=== PATIENT | male | born 1950 | race Caucasian/White ===

== ENCOUNTER 2019-08-08 08:18 | Emergency (ER) | payer BC, MEDICARE ==
--- OUTSIDE RECORDS SUMMARY | 2019-08-08 08:58 | XMS REPORT | Continuity of Care Document ---
:1950 External Reference #:[id number] Author Name Cory Byrd M.D., [facility] Address [address] [place] [address] Care Team Providers Name Role Phone Jose Manuel Huang MD - Otolaryngology Care Team Information Supervisor Waterworks Maria Luz Lewis MD - Internal Medicine Care Team Information Supervisor Waterworks Brannon Vallecillo MD Care Team Information Supervisor Waterworks [phone] Davide Stuart MD - Family Medicine Care Team Information Supervisor Waterworks [phone] Problems Active Problems Provider Date Benign essential hypertension Maria Luz Lewis MD Onset: 01/26/2018 Hypothyroidism Maria Luz Lewis MD Onset: 02/03/2018 Disorder of adrenal gland Maria Luz Lewis MD Onset: 02/03/2018 Immunization Maria Luz Lewis MD Onset: 02/03/2018 Pain in limb Maria Luz Lewis MD Onset: 02/03/2018 Abnormal glucose level Maria Luz Lewis MD Onset: 03/17/2018 Adult health examination Maria Luz Lewis MD Onset: 04/20/2018 Allergic rhinitis Maria Luz Lewis MD Onset: 04/20/2018 Cramp and spasm Maria Luz Lewis MD Onset: 04/20/2018 Screening for malignant neoplasm of Maria Luz Lewis MD Onset: 04/20/2018 prostate Benign prostatic hyperplasia Aurea Gomez M.D. Onset: 01/17/2019 Chest pain Cory Byrd M.D., Onset: 08/04/2019 [facility] Social History Type Date Description Comments Sex Unknown Tobacco Use Start: Unknown End: Quit Unknown Smoking Status Reviewed: 08/04/19 Quit ETOH Use Currently consumes alcohol socially Recreational Drug Use Never Used Drugs Tobacco Use Start: Unknown End: Patient is a former Quit 2005, cigars Unknown smoker Allergies, Adverse Reactions, Alerts Active Allergies Reaction Severity Comments Date Sulfa Drugs as a child 02/03/2018 Penicillin as a child 02/03/2018 Medications Active Medications SIG Qnty Indications Ordering Provider Date Ferrous Sulfate 1 by mouth every 90tabs Maria Luz Lewis MD 04/06/2019 325(65Fe) day OTC mg Tablets Levothyroxine Sodium take 1 tablet by 90tabs Maria Luz Lewis MD 10/07/2018 mouth every 150mcg Tablets morning On An Empty Stomach Losartan Potassium take 1 tablet by 90tabs Maria Luz Lewis MD 07/13/2018 50mg mouth once daily Tablets Amlodipine Besylate 1 by mouth every 90tabs Maria Luz Lewis MD 02/03/2018 5mg day Tablets Multivitamin Adults 1 by mouth every 90tabs Maria Luz Lewis MD 02/03/2018 50+ day Adlt 50+ Tablets Omeprazole 1 by mouth every Unknown 20mg Capsules day DR Vitamin D 1 by mouth every Unknown 1000Unit day Tablets History Medications Mucinex DM 1-2 tabs by mouth 60tabs R0Davide Yi, 07/19/2019 - 30-600mg twice a day as Unknown Tablets ER 12HR needed Chloraseptic Total 1 lozenge by mouth 45units R0Davide Yi, 07/19/2019 - Sore Throat + Cough every 2 hours as Unknown needed Lozenges Omeprazole take 1 capsules by 90caps Maria Luz Lewis, 05/23/2019 - 10mg Capsules mouth every day 30 MD 07/19/2019 minutes before a meal. Ciprofloxacin HCL 1 by mouth once 20tabs Jason, 04/19/2019 - 500mg given in office Madhu Villar 04/20/2019 Tablets before procedures Medications Administered in Office Medication SIG Qnty Indications Ordering Provider Date Vitamin B12 Injection 1000 Amanda Crowley MS, 05/23/2019 mcg/Ml LYE PEEL OPERATOR-C, CNM Injection Vitamin B12 Injection 1000 Nurse Internal Med 04/15/2019 mcg/Ml Injection Vitamin B12 Injection 1000 Nurse Internal Med 03/14/2019 mcg/Ml Injection Vitamin B12 Injection 1000 Nurse Internal Med 02/10/2019 mcg/Ml Injection Vitamin B12 Injection 1000 Maria Luz Lewis MD 01/05/2019 mcg/Ml Injection Immunizations CPT Code Status Date Vaccine Reaction Lot # [id number] Given 08/20/2018 Pneumovax Injection [id number] Given 08/20/2018 Influenza Virus Vaccine, Quadrivalent, 36 Mos+, .5ML [id number] Given 04/20/2018 Pneumovax Injection [id number] Given 02/03/2018 Tdap injection none [id number] Vital Signs Date Vital Result Comment 08/04/2019 8:20am BP Systolic Sitting Right Arm 165 mmHg BP Diastolic Sitting Right Arm 99 mmHg Heart Rate 60 /min Respiratory Rate 16 /min Height 68 inches 5'8" Weight 169.00 lb BMI (Body Mass Index) 25.7 kg/m2 BSA (Body Surface Area) 1.90 m2 [place] body weight in kilograms 70 kg O2 % BldC Oximetry 96 % ra 07/19/2019 3:52pm BP Systolic 132 mmHg BP Diastolic 87 mmHg Body Temperature 97.8 F Heart Rate 65 /min Respiratory Rate 18 /min Height 68 inches 5'8" Weight 172.00 lb BMI (Body Mass Index) 26.1 kg/m2 BSA (Body Surface Area) 1.92 m2 [place] body weight in kilograms 70 kg O2 % BldC Oximetry 98 % Ra Results Test Date Facility Test Result H/L Range Note Automated blood N2N/CCD Import Automated blood 0.01 immature 019 immature granulocyte count granulocyte count (number (number/volume) Automated blood N2N/CCD Import Automated blood 0.00 nucleated 019 nucleated erythrocyte count erythrocyte count (count (count/volume) Serum or plasma N2N/CCD Import Serum or plasma 96 74-106 glucose measurement 019 glucose measurement (mass/volume) (mass/volume) Serum or plasma N2N/CCD Import Serum or plasma 23 High 7-18 urea nitrogen 019 urea nitrogen measurement measurement (mass/vo (mass/volume) Serum or plasma N2N/CCD Import Serum or plasma 1.1 0.6-1.3 creatinine 019 creatinine measurement measurement (mass/volum (mass/volume) Estimated N2N/CCD Import Estimated >60 >60 glomerular 019 glomerular filtration rate filtration rate (GFR) non-Afr (GFR) non- GFR/Bsa pred.black N2N/CCD Import GFR/Bsa pred.black >60 >60 SerPl MDRD-ArVRat 019 SerPl MDRD-ArVRat Serum or plasma N2N/CCD Import Serum or plasma 20.9 urea 019 urea nitrogen/creatinine nitrogen/creatinine mass rati mass ratio Sodium SerPl-sCnc N2N/CCD Import Sodium SerPl-sCnc 139 136-145 019 Serum or plasma N2N/CCD Import Serum or plasma 3.9 3.5-5.1 potassium 019 potassium measurement measurement Serum or plasma N2N/CCD Import Serum or plasma 107 98-107 chloride 019 chloride measurement measurement Co2 SerPl-sCnc N2N/CCD Import Co2 SerPl-sCnc 27 21-32 019 Serum or plasma N2N/CCD Import Serum or plasma 5 Low 8-16 anion gap 019 anion gap Serum or plasma N2N/CCD Import Serum or plasma 8.4 Low 8.5-10.1 calcium measurement 019 calcium measurement (mass/volume) (mass/volume) Serum or plasma N2N/CCD Import Serum or plasma 7.3 6.4-8.2 protein measurement 019 protein measurement (mass/volume) (mass/volume) Serum or plasma N2N/CCD Import Serum or plasma 3.3 Low 3.4-5.0 albumin measurement 019 albumin measurement (mass/volume) (mass/volume) Serum globulin N2N/CCD Import Serum globulin 4.0 1.9-4.3 measurement by 019 measurement by calculation calculation (mass/vo (mass/volume) Serum or plasma N2N/CCD Import Serum or plasma 0.8 albumin/globulin 019 albumin/globulin mass ratio mass ratio Serum or plasma N2N/CCD Import Serum or plasma 0.5 0.2-1.0 total bilirubin 019 total bilirubin measurement (mass/ measurement (mass/volume) Serum or plasma N2N/CCD Import Serum or plasma 13 Low 15-37 aspartate 019 aspartate aminotransferase aminotransferase measure measurement (enzymatic activity/volume) Serum or plasma N2N/CCD Import Serum or plasma 18 12-78 alanine 019 alanine aminotransferase aminotransferase measureme measurement (enzymatic activity/volume) Serum or plasma N2N/CCD Import Serum or plasma 67 45-117 alkaline 019 alkaline phosphatase phosphatase measurement ( measurement (enzymatic activity/volume) Serum or plasma N2N/CCD Import Serum or plasma <0.015 troponin i.cardiac 019 troponin i.cardiac measurement (ma measurement (mass/volume) CBC W/Automated [facility] White Blood Count 4.3 K/uL Normal 3.4-10.5 1 Diff 019 [address] [place] [address] [phone] Red Blood Count 4.16 M/uL Low 4.20-5.80 Hemoglobin 14.0 gm/dL Normal 12.8-17.0 Hematocrit 40.5 % Normal 38.0-48.0 Mean Cell Volume 97.4 fl High 80.0-96.0 Mean Corpuscular HGB 33.7 pg High 27.0-33.0 Mean Corpuscular HGB Conc 34.6 g/dL Normal 31.7-36.0 Platelet Count 354 K/uL Normal 155-360 Red Cell Distri Width SD 47.6 fl Normal 36-51 Red Cell Distri Width %CV 13.2 % Normal 11.6-15.8 Mean Platelet Volume 9.3 fl Normal 6.6-10.6 Neut% 75.0 % High 33.0-73.0 Lymph % 13.2 % Low 20.0-42.0 Wilson % 8.1 % Normal 0.0-10.0 Eo% 2.6 % Normal 0.0-6.6 Bas% 0.9 % Normal 0.0-1.1 Immature Grans 0.2 % Normal 0.0-5.0 NRBC % 0.0 /100WBC < 10/ 100 WBC Neut# 3.23 K/uL Normal 1.8-7.0 Lymph # 0.57 K/uL Low 1.0-4.0 Wilson # 0.35 K/uL Normal 0.0-0.8 Eos # 0.11 K/uL Normal 0.0-0.5 Baso # 0.04 K/uL Normal 0.0-0.1 Immature Grans Absolute 0.01 K/uL NRBC # 0.00 K/uL Automated leukocyte 07/12/2019 N2N/CCD Import Automated 4.3 3.4-10.5 count leukocyte count (number/volume) (number/volume) Blood erythrocytes 07/12/2019 N2N/CCD Import Blood erythrocytes 4.16 Low 4.20-5.80 automated count automated count (number/volume) (number/volume) Blood hemoglobin 07/12/2019 N2N/CCD Import Blood hemoglobin 14.0 12.8- 17.0 measurement measurement (mass/volume) (mass/volume) Hct VFr Bld Auto 07/12/2019 N2N/CCD Import Hct VFr Bld Auto 40.5 38.0- 48.0 Automated 07/12/2019 N2N/CCD Import Automated 97.4 High 80.0-96.0 erythrocyte mean erythrocyte mean corpuscular volume corpuscular volume (MCV (MCV) measurement Automated 07/12/2019 N2N/CCD Import Automated 33.7 High 27.0-33.0 erythrocyte mean erythrocyte mean corpuscular corpuscular hemoglobin hemoglobin (mass per erythrocyte) Automated 07/12/2019 N2N/CCD Import Automated 34.6 31.7-36.0 erythrocyte mean erythrocyte mean corpuscular corpuscular hemoglobin hemoglobin concentration measurement (mass/volume) Automated blood 07/12/2019 N2N/CCD Import Automated blood 354 155-360 platelet count platelet count (count/volume) (count/volume) Automated 07/12/2019 N2N/CCD Import Automated 47.6 36-51 erythrocyte erythrocyte distribution width distribution width Automated 07/12/2019 N2N/CCD Import Automated 13.2 11.6-15.8 erythrocyte erythrocyte distribution width distribution width ratio ratio Automated blood 07/12/2019 N2N/CCD Import Automated blood 9.3 6.6-10.6 platelet mean platelet mean volume measurement volume measurement Automated blood 07/12/2019 N2N/CCD Import Automated blood 0.04 0.0-0.1 basophil count basophil count (number/volume) (number/volume) Automated blood 07/12/2019 N2N/CCD Import Automated blood 0.11 0.0-0.5 eosinophil count eosinophil count Blood monocytes 07/12/2019 N2N/CCD Import Blood monocytes 0.35 0.0-0.8 automated count automated count (number/volume) (number/volume) Automated blood 07/12/2019 N2N/CCD Import Automated blood 0.57 Low 1.0- 4.0 lymphocyte count lymphocyte count (number/volume) (number/volume) Absolute neutrophil 07/12/2019 N2N/CCD Import Absolute 3.23 1.8-7.0 count neutrophil count Automated blood 07/12/2019 N2N/CCD Import Automated blood 0.0 < 10/ 100 nucleated nucleated WBC erythrocyte count erythrocyte count as per as percentage of total leukocytes Automated blood 07/12/2019 N2N/CCD Import Automated blood 0.2 0.0-5.0 immature immature granulocyte count granulocyte count as perc as percentage of total leukocytes Automated basophil 07/12/2019 N2N/CCD Import Automated basophil 0.9 0.0- 1.1 % % Automated 07/12/2019 N2N/CCD Import Automated 2.6 0.0-6.6 eosinophil % eosinophil % Automated monocyte 07/12/2019 N2N/CCD Import Automated monocyte 8.1 0.0- 10.0 % % Automated blood 07/12/2019 N2N/CCD Import Automated blood 13.2 Low 20.0- 42.0 lymphocytes/100 lymphocytes/100 leukocytes leukocytes Automated blood 07/12/2019 N2N/CCD Import Automated blood 75.0 High 33.0- 73.0 neutrophils/100 neutrophils/100 leukocytes leukocytes CBC Auto Diff 05/11/2019 [facility] White Blood Count 3.4 Low 3.5-10.8 [phone] 10^3/u L Red Blood Count 4.37 10^6/uL Normal 4.18-5.48 Hemoglobin 14.4 g/dL Normal 14.0-18.0 Hematocrit 42 % Normal 42-52 Mean Corpuscular Volume 97 fL High 80-94 Mean Corpuscular Hemoglobin 33 pg High 27-31 Mean Corpuscular HGB Conc 34 g/dL Normal 31-36 Red Cell Distribution Width 15 % Normal 10-15 Platelet Count 243 10^3/uL Normal 150-450 Mean Platelet Volume 8.1 fL Normal 7.4-10.4 Abs Neutrophils 1.8 10^3/uL Normal 1.5-7.7 Abs Lymphocytes 0.8 10^3/uL Low 1.0-4.8 Abs Monocytes 0.5 10^3/uL Normal 0-0.8 Abs Eosinophils 0.3 10^3/uL Normal 0-0.6 Abs Basophils 0.0 10^3/uL Normal 0-0.2 Abs Nucleated RBC 0.0 10^3/uL Granulocyte % 53.1 % Lymphocyte % 22.3 % Monocyte % 13.7 % Eosinophil % 9.7 % Basophil % 1.2 % Nucleated Red Blood Cells % 0.0 Iron & Iron Binding 05/11/2019 [facility] Iron 79 g /dL Normal 50-212 Capacity [phone] Unsaturated Iron Binding < 293 g/dL Total Iron Binding Capacity 308 g/dL Normal 250-450 Transferrin 220 mg/dL Normal 203-362 % Iron Saturation 26 % Normal 15-55 Laboratory 05/11/2019 [facility] TSH (Thyroid 1.36 Normal 0.34-5.60 test finding [phone] Stim Horm) mcIU/mL Free T4 (Free Thyroxine) 1.36 ng/dL High 0.61-1.12 Ferritin 70.7 ng/mL Normal 24-336 Vitamin B12 335 pg/mL Normal 180-914 2 Urine Dipstick 04/19/2019 [facility] Ua Color Yellow Yellow Ua Clarity Clear Clear Ua Leuko Negative Negative Ua Nitrite Negative Negative Ua Urobilinogen 0.2 0.2 - 1.0 E.U./dL Ua Protein Negative Negative Ua PH 6.5 6.5-7.5 Ua Blood Negative Negative Ua Specific [place] 1.020 1.010-1.030 Ua Ketones Negative Negative Ua Bilirubin Negative Negative Ua Glucose Negative Negative CBC Auto 03/28/2019 [facility] White Blood 3.7 10^3/ uL Normal 3.5-10.8 Diff [phone] Count Red Blood Count 4.45 10^6/uL Normal 4.18-5.48 Hemoglobin 14.0 g/dL Normal 14.0-18.0 Hematocrit 42 % Normal 42-52 Mean Corpuscular Volume 94 fL Normal 80-94 Mean Corpuscular Hemoglobin 32 pg High 27-31 Mean Corpuscular HGB Conc 34 g/dL Normal 31-36 Red Cell Distribution Width 17 % High 10.5-15 Platelet Count 267 10^3/uL Normal 150-450 Mean Platelet Volume 7.9 fL Normal 7.4-10.4 Abs Neutrophils 2.5 10^3/uL Normal 1.5-7.7 Abs Lymphocytes 0.6 10^3/uL Low 1.0-4.8 Abs Monocytes 0.3 10^3/uL Normal 0-0.8 Abs Eosinophils 0.2 10^3/uL Normal 0-0.6 Abs Basophils 0.0 10^3/uL Normal 0-0.2 Abs Nucleated RBC 0.0 10^3/uL Granulocyte % 68.0 % Lymphocyte % 17.1 % Monocyte % 9.3 % Eosinophil % 4.6 % Basophil % 1.0 % Nucleated Red Blood Cells % 0.0 Iron & Iron 03/28/2019 [facility] Iron 173 g/dL Normal 50-212 Binding Capacity [phone] Unsaturated Iron Binding 148 g/dL Total Iron Binding Capacity 321 g/dL Normal 250-450 Transferrin 229 mg/dL Normal 203-362 % Iron Saturation 54 % Normal 15-55 Laboratory test 03/28/2019 [facility] TSH (Thyroid 10.94 High 0.34-5.60 finding [phone] Stim Horm) mcIU/mL Free T4 (Free Thyroxine) 1.02 ng/dL Normal 0.61-1.12 Ferritin 49.2 ng/mL Normal 24-336 Vitamin B12 405 pg/mL Normal 180-914 3 1 HAVING BOUTS OF CHEST PAIN, SENT BY PCP 2 Normal Range 180 to 914 Indeterminate Range 145 to 180 Deficient Range <145 3 Normal Range 180 to 914 Indeterminate Range 145 to 180 Deficient Range <145 Procedures Date Code Description Status 05/23/2019 21453 Theraputic Or Diagnostic Injection Completed 04/19/2019 17666 Ultrasound Transrectal Completed 04/19/2019 12794 Cystoscopy Completed 04/15/2019 92226 Theraputic Or Diagnostic Injection Completed 03/14/2019 03862 Theraputic Or Diagnostic Injection Completed 02/10/2019 06019 Theraputic Or Diagnostic Injection Completed 06/17/2016 [id number] Colonoscopy Completed 04/11/2011 46455894 Colonoscopy Completed 05/07/2006 15413931 Colonoscopy Completed Medical Devices Description No Information Available Encounters Type Date Location Provider Dx Diagnosis Office Visit 07/19/2019 Family Medicine Davide Stuart MD R07.9 Chest pain, 3:[address]p [address] unspecified R05 Cough Office Visit 05/23/2019 1:00p Primary Care Amanda Crowley, D51.9 Vitamin B12 Office MS, [employer]YE PEEL OPERATOR-C, CNM deficiency anemia, unspecified I10 Essential (primary) hypertension E03.9 Hypothyroidism, unspecified D64.9 Anemia, unspecified R73.9 Hyperglycemia, unspecified 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 I71.2 Thoracic aortic aneurysm, without rupture N40.1 Benign prostatic hyperplasia with lower urinary tract symp K21.9 Gastro-esophageal reflux disease without esophagitis Z71.9 Counseling, unspecified Office Visit 04/19/2019 9:00a Urology Jason N40.1 Benign prostatic Madhu Villar hyperplasia with lower urinary tract symp Office Visit 04/06/2019 1:00p Primary Care Maria Luz Lewis, N40.1 Benign prostatic Office MD hyperplasia with lower urinary tract symp I10 Essential (primary) hypertension E03.9 Hypothyroidism, unspecified R13.14 Dysphagia, pharyngoesophageal phase D64.9 Anemia, unspecified Office Visit 03/01/2019 1:00p Primary Care Amanda Crowley, M54.5 Low back Office MS, LYE PEEL OPERATOR-C, CNM pain R10.9 Unspecified abdominal pain Assessments Date Code Description Provider 08/04/2019 R07.9 Chest pain, unspecified Cory Byrd M.D., [facility] 08/04/2019 I10 Essential (primary) hypertension Cory Byrd M.D., [facility] 07/19/2019 R07.9 Chest pain, unspecified Davide Stuart MD 07/19/2019 R05 Cough Davide Stuart MD 05/23/2019 D51.9 Vitamin B12 deficiency anemia, Amanda Crowley, MS, unspecified [employer]YE PEEL OPERATOR-C, CNM 05/23/2019 I10 Essential (primary) hypertension Amanda Crowley, MS, [employer]YE PEEL OPERATOR-C, CNM 05/23/2019 E03.9 Hypothyroidism, unspecified Amanda Crowley, MS, [employer]YE PEEL OPERATOR-C, CNM 05/23/2019 D64.9 Anemia, unspecified GagAmanda rubin, MS, LYE PEEL OPERATOR-C, [facility] 05/23/2019 R73.9 Hyperglycemia, unspecified Amanda Crowley, MS, LYE PEEL OPERATOR-C, [facility] 05/23/2019 E27.8 Other specified disorders of adrenal Amanda Crowley, MS, gland LYE PEEL OPERATOR-C, [facility] 05/23/2019 I71.2 Thoracic aortic aneurysm, without GagAmanda rubin, MS, rupture LYE PEEL OPERATOR-C, [facility] 05/23/2019 N40.1 Benign prostatic hyperplasia with lower Amanda Crowley, MS, urinary tract symptoms LYE PEEL OPERATOR-C, [facility] 05/23/2019 K21.9 Gastro-esophageal reflux disease Amanda Crowley, MS, without esophagitis LYE PEEL OPERATOR-C, [facility] 05/23/2019 Z71.9 Counseling, unspecified Amanda Crowley, MS, LYE PEEL OPERATOR-C, [facility] 04/19/2019 N40.1 Benign prostatic hyperplasia with lower Aurea Gomez M.D. urinary tract sympto 04/15/2019 D51.9 Vitamin B12 deficiency anemia, Maria Luz Lewis MD unspecified 04/15/2019 D51.9 Vitamin B12 deficiency anemia, Nurse Internal Med unspecified 04/06/2019 N40.1 Benign prostatic hyperplasia with lower Maria Luz Lewis MD urinary tract sympto 04/06/2019 I10 Essential (primary) hypertension Maria Luz Lewis MD 04/06/2019 E03.9 Hypothyroidism, unspecified Maria Luz Lewis MD 04/06/2019 R13.14 Dysphagia, pharyngoesophageal phase Maria Luz Lewis MD 04/06/2019 D64.9 Anemia, unspecified Maria Luz Lewis MD 03/14/2019 D51.9 Vitamin B12 deficiency anemia, Maria Luz Lewis MD unspecified 03/14/2019 D51.9 Vitamin B12 deficiency anemia, Nurse Internal Med unspecified 03/01/2019 M54.5 Low back pain Amanda Crowley, MS, LYE PEEL OPERATOR-C, CN 03/01/2019 R10.9 Unspecified abdominal pain Amanda Crowley, MS, LYE PEEL OPERATOR-C, [facility] 02/10/2019 D51.9 Vitamin B12 deficiency anemia, Maria Luz Lewis MD unspecified 02/10/2019 D51.9 Vitamin B12 deficiency anemia, Nurse Internal Med unspecified Plan of Treatment 08/04/2019 - Cory Byrd M.D., FACCR07.9 Chest pain, unspecifiedNew Orders:Nuclear Stress Test, Cardiolite, Exercise, Ordered: Echocardiogram, Ordered: 08/04/19Comments:We will schedule a stress test to evaluate the patient's ischemic potential. He will also have an echo. He will call me to discuss the results.I10 Essential (primary) hypertensionComments:The BP is high today. We will see his BP on the day of the stress test and the response of the BP toexercise. We may have to adjust his medications.AllFollow up:Follow up with us on a PRN basis. Functional Status Description No Information Available Mental Status Description No Information Available Referrals Refer to Dr Reason for Referral Status Appt Date Cory Byrd MD [facility] Scheduled 08/04/[address] [place], [place] [id number] [phone]
--- OUTSIDE RECORDS SUMMARY | 2019-08-08 08:58 | XMS REPORT | Continuity of Care Document ---
:1950 External Reference #:[id number] Author Name Davide Stuart MD Address [address] [place] [id number] Care Team Providers Name Role Phone Jose Manuel Huang MD - Otolaryngology Care Team Information Director Property Maria Luz Lewis MD - Internal Medicine Care Team Information Director Property Brannon Vallecillo MD Care Team Information Director Property [phone] Problems Active Problems Provider Date Benign essential [...] Onset: 04/20/2018 Screening for malignant neoplasm of prostate Maria Luz Lewis MD Onset: 2017 Benign prostatic hyperplasia Aurea Gomez M.D. Onset: 01/17/2019 Social History Type Date Description Comments Sex Unknown ETOH Use Currently consumes alcohol socially Recreational Drug Use Never Used Drugs Tobacco Use Start: Unknown End: Patient is a former Quit 2005, cigars Unknown smoker Smoking Status Reviewed: 07/19/19 Patient is a former Quit 2005, cigars smoker Allergies, Adverse Reactions, Alerts Active Allergies Reaction Severity Comments Date Sulfa Drugs as a child 02/03/2018 Penicillin as a child 02/03/2018 Medications Active Medications SIG Qnty Indications Ordering Date Provider Mucinex DM 1-2 tabs by mouth 60tabs R05 Davide Stuart, 07/19/2019 30-600mg twice a day as MD Tablets ER 12HR needed Chloraseptic Total 1 lozenge by mouth 45units R05 Davide Stuart, 07/19/2019 Sore Throat + Cough every 2 hours as MD needed Lozenges Ferrous Sulfate 1 by mouth every day 90tabs Maria Luz Lewis, 04/06/2019 OTC 325(65Fe) mg Tablets Cyanocobalamin 1000mcg (1ml) Maria Luz Lewis, 01/05/2019 intramuscular MD 1000mcg/ML Solution injection monthly Levothyroxine Sodium take 1 tablet by 90tabs Maria Luz Lewis, 10/07/2018 mouth every morning 150mcg Tablets On An Empty Stomach Losartan Potassium take 1 tablet by 90tabs Maria Luz Lewis, 07/13/2018 50mg mouth once daily MD Tablets Amlodipine Besylate 1 by mouth every day 90tabs Maria Luz Lewis, 02/03/2018 5mg MD Tablets Multivitamin Adults 1 by mouth every day 90tabs Maria Luz Lewis, 02/03/2018 50+ MD Adlt 50+ Tablets Omeprazole 1 by mouth every day Unknown 20mg Capsules DR History Medications Omeprazole take 1 capsules by 90caps Maria Luz Lewis, 05/23/2019 - 10mg Capsules mouth every day 30 MD 07/19/2019 DR minutes before a meal. Ciprofloxacin HCL 1 by mouth once 20tabs Aurea Gomez, 04/19/2019 - 500mg given in office M.D. 04/20/2019 Tablets before procedures Medications Administered in Office Medication SIG Qnty Indications Ordering Provider Date Vitamin B12 Injection 1000 Amanda Crowley, , 05/23/2019 mcg/Ml BAG WORKER-[employer], CNM Injection Vitamin B12 Injection 1000 Nurse Internal Med 04/15/2019 mcg/Ml Injection Vitamin B12 Injection 1000 Nurse Internal Med 03/14/2019 mcg/Ml Injection Vitamin B12 Injection 1000 Nurse Internal Med 02/10/2019 mcg/Ml Injection Vitamin B12 Injection 1000 Maria Luz Lewis MD 01/05/2019 mcg/Ml Injection Immunizations CPT Code Status Date Vaccine Reaction Lot # [id number] Given 08/20/2018 Pneumovax Injection 34935 Given 08/20/2018 Influenza Virus Vaccine, Quadrivalent, 36 Mos+, .5ML 34644 Given 04/20/2018 Pneumovax Injection [id number] 62082 Given 02/03/2018 Tdap injection none [id number] Vital Signs Date Vital Result Comment 07/19/2019 3:52pm BP Systolic 132 mmHg BP Diastolic 87 mmHg Body Temperature 97.8 F Heart Rate 65 /min Respiratory Rate 18 /min Height 68 inches 5'8" Weight 172.00 lb BMI (Body Mass Index) 26.1 kg/m2 BSA (Body Surface Area) 1.92 m2 [place] body weight in kilograms 70 kg O2 % BldC Oximetry 98 % Ra 05/23/2019 12:54pm BP Systolic Sitting Left Arm 112 mmHg BP Diastolic Sitting Left Arm 78 mmHg Body Temperature 98.3 F Heart Rate 64 /min Respiratory Rate 78 /min Height 68 inches 5'8" Weight 166.00 lb BMI (Body Mass Index) 25.2 kg/m2 BSA (Body Surface Area) 1.89 m2 [place] body weight in kilograms 70 kg O2 % BldC Oximetry 98 % Results Test Date Facility Test Result H/L [...] rate (GFR) non-Afr (GFR) non- GFR/Bsa pred.black 08/20/2 N2N/CCD Import GFR/Bsa pred.black >60 >60 SerPl [...] K/uL Normal 3.4-10.5 1 Diff [address]19 [address] [place] [address] [phone] Red Blood Count 4.16 M/uL Low 4.20-5.80 [...] 33.0-73.0 Lymph % 13.2 % Low 20.0-42.0 Alexander % 8.1 % Normal 0.0-10.0 Eo% 2.6 % Normal 0.0-6.6 Bas% 0.9 % Normal 0.0-1.1 Immature Grans 0.2 % Normal 0.0-5.0 NRBC % 0.0 /100WBC < 10/ 100 WBC Neut# 3.23 K/uL Normal 1.8-7.0 Lymph # 0.57 K/uL Low 1.0-4.0 Alexander # 0.35 K/uL Normal 0.0-0.8 Eos # [...] neutrophils/100 leukocytes leukocytes CBC Auto Diff 05/11/2019 [facility] White Blood Count 3.4 Low 3.5-10.8 [phone] 10^3/u L Red Blood Count 4.37 10^6/uL [...] % 0.0 Iron & Iron Binding 05/11/2019 [facility] Iron 79 g /dL Normal 50-212 Capacity [phone] Unsaturated Iron Binding < 293 g/dL Total Iron Binding Capacity 308 g/dL Normal 250-450 Transferrin 220 mg/dL Normal 203-362 % Iron Saturation 26 % Normal 15-55 Laboratory 05/11/2019 [facility] TSH (Thyroid 1.36 Normal 0.34-5.60 test finding [phone] Stim Horm) mcIU/mL Free T4 (Free Thyroxine) [...] 6.5-7.5 Ua Blood Negative Negative Ua Specific [place] 1.020 1.010-1.030 Ua Ketones Negative Negative Ua Bilirubin Negative Negative Ua Glucose Negative Negative CBC Auto 03/28/2019 [facility] White Blood 3.7 10^3/ uL Normal 3.5-10.8 Diff [phone] Count Red Blood Count 4.45 10^6/uL Normal [...] Cells % 0.0 Iron & Iron 03/28/2019 [facility] Iron 173 g/dL Normal 50-212 Binding Capacity [phone] Unsaturated Iron Binding 148 g/dL Total Iron Binding Capacity 321 g/dL Normal 250-450 Transferrin 229 mg/dL Normal 203-362 % Iron Saturation 54 % Normal 15-55 Laboratory test 03/28/2019 [facility] TSH (Thyroid 10.94 High 0.34-5.60 finding [phone] Stim Horm) mcIU/mL Free T4 (Free Thyroxine) [...] <145 Procedures Date Code Description Status 05/23/2019 09244 Theraputic Or Diagnostic Injection Completed 04/19/2019 54619 Ultrasound Transrectal Completed 04/19/2019 41652 Cystoscopy Completed 04/15/2019 89003 Theraputic Or Diagnostic Injection Completed 03/14/2019 41975 Theraputic Or Diagnostic Injection Completed 02/10/2019 56222 Theraputic Or Diagnostic Injection Completed 06/17/2016 65713774 Colonoscopy Completed 04/11/2011 69325854 Colonoscopy Completed 05/07/2006 31678876 Colonoscopy Completed Medical Devices Description No Information Available Encounters Type Date Location Provider Dx Diagnosis Office Visit 07/19/2019 Family Medicine Davide Stuart MD R07.9 Chest pain, 3:[address]p [address] unspecified I10 Essential (primary) hypertension E03.9 Hypothyroidism, unspecified D64.9 Anemia, unspecified R05 Cough Office Visit 05/23/2019 1:00p Primary Care Amanda Crowley, D51.9 Vitamin B12 Office MS, BAG WORKER-C, CNM deficiency anemia, unspecified I10 Essential (primary) hypertension E03.9 Hypothyroidism, unspecified D64.9 Anemia, unspecified R73.9 Hyperglycemia, unspecified 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 I71.2 Thoracic aortic aneurysm, without rupture N40.1 Benign prostatic hyperplasia with lower urinary tract symp K21.9 Gastro-esophageal reflux disease without esophagitis Z71.9 Counseling, unspecified Office Visit 04/19/2019 9:00a Urology Jason, N40.1 Benign prostatic Madhu Villar hyperplasia with lower urinary tract symp Office Visit 04/06/2019 1:00p Primary Care Maria Luz Lewis, N40.1 Benign prostatic Office MD hyperplasia with lower urinary tract symp I10 Essential (primary) hypertension E03.9 Hypothyroidism, unspecified R13.14 Dysphagia, pharyngoesophageal phase D64.9 Anemia, unspecified Office Visit 03/01/2019 1:00p Primary Care Amanda Crowley, M54.5 Low back Office MS, BAG WORKER-C, CNM pain R10.9 Unspecified abdominal pain Assessments Date Code Description Provider 07/19/2019 R07.9 Chest pain, unspecified Davide Stuart MD 07/19/2019 I10 Essential (primary) hypertension Davide Stuart MD 07/19/2019 E03.9 Hypothyroidism, unspecified Davide Stuart MD 07/19/2019 D64.9 Anemia, unspecified Davide Stuart MD 07/19/2019 R05 Cough Davide Stuart MD 05/23/2019 D51.9 Vitamin B12 deficiency anemia, Amanda Crowley, MS, unspecified BAG WORKER[employer], CNM 05/23/2019 I10 Essential (primary) hypertension Amanda Crowley, MS, BAG WORKER[employer], CNM 05/23/2019 E03.9 Hypothyroidism, unspecified Amanda Crowley, MS, BAG WORKER[employer], CNM 05/23/2019 D64.9 Anemia, unspecified Gagcaryn, Amanda, MS, BAG WORKER-C, CNM 05/23/2019 R73.9 Hyperglycemia, unspecified Gagcaryn, Amanda, , BAG WORKER-C, [facility] 05/23/2019 E27.8 Other specified disorders of adrenal Amanda Crowley MS, gland [employer] WORK[employer], [facility] 05/23/2019 I71.2 Thoracic aortic aneurysm, without Amanda Crowley, , rupture BAG WORKER-C, [facility] 05/23/2019 N40.1 Benign prostatic hyperplasia with lower Amanda Crowley, , urinary tract symptoms BAG WORKER-C, [facility] 05/23/2019 K21.9 Gastro-esophageal reflux disease Amanda Crowley MS, without esophagitis [employer]AG WORK[employer], [facility] 05/23/2019 Z71.9 Counseling, unspecified Amanda Crowley MS, BAG WORKER-C, [facility] 04/19/2019 N40.1 Benign prostatic hyperplasia with lower [...] unspecified 03/01/2019 M54.5 Low back pain Amanda Crowley MS, BAG WORKER-[employer], [facility] 03/01/2019 R10.9 Unspecified abdominal pain Amanda Crowley, , BAG WORKER-C, [facility] 02/10/2019 D51.9 Vitamin B12 deficiency anemia, Maria Luz Lewis MD unspecified 02/10/2019 D51.9 Vitamin B12 deficiency anemia, Nurse Internal Med unspecified Plan of Treatment Future Appointment(s):08/22/2019 9:30 am - Amanda Crowley, MS, BAG WORKER-C, CNM at [facility]907/19/2019 - Davide Stuart, MDR07.9 Chest pain, unspecifiedReferral:Cory Byrd MD [facility], Cardiovsclr EwkdapqS93 Essential (primary) ranaorqlfwnxC95.9 Hypothyroidism, wxclsqcmqglB78.9 Anemia, hixruoksqsmZ45 CoughNew Medication:Mucinex DM 30-600 mg - 1-2 tabs by mouth twice a day as neededChloraseptic Total Sore Throat + Cough - 1 lozenge by mouth every 2 hours as needed Functional Status Description No Information Available Mental Status Description No Information Available Referrals Refer to Dr Reason for Referral Status Appt Date Cory Byrd MD [facility] Created [address] [place] [address] [phone]
[2019-08-08 09:08] VITALS: BP 141/93
--- NOTE | 2019-08-08 09:35 | UC ---
Abdominal Pain Female HPI - HPI Summary HPI Summary: 69-year-old male comes in with a chief complaint of left upper quadrant epigastric abdominal pain. This started about 2 days ago. It's been getting worse since then. It is about 4 out of 10. Pain is worse when he lays down flat or if he bends forward. Patient feels bloated in the upper abdomen. No fevers or chills. Food makes it worse. He did just recently get treated or chest congestion. Denies any further chest congestion or chest pain. He has noticed dark stools on and off over the last year. Reports that he had that investigated through his primary care physician and they did not find any blood in it. Also reports having a an endoscopy upper by GI about 6 months ago due to some esophageal problems. No difficulty with urination or changes in urination. - History of Current Complaint Chief Complaint: UCRespiratory Stated Complaint: CONGESTION,ABDOMINAL SORENESS Time Seen by Provider: 08/08/19 09:04 Pain Intensity: 5 Allergies/Adverse Reactions: Allergies Allergy/AdvReac Type Severity Reaction Status Date / Time Penicillins Allergy Swelling Verified 08/08/19 09:00 Sulfa (Sulfonamide Allergy Unknown Verified 08/08/19 09:00 Antibiotics) Reaction Details Home Medications: Home Medications Ferrous Gluconate [Iron 27] 2,401 tab PO DAILY 08/08/19 [History Confirmed 08/08] Losartan Potassium [Cozaar] 50 mg PO DAILY 08/08/19 [History Confirmed 08/08/19] Omeprazole 20 mg PO DAILY 08/08/19 [History Confirmed 08/08/19] PMH/Surg Hx/FS Hx/Imm Hx Previously Healthy: Yes Endocrine History: Hypothyroidism GI/ History: Gastroesophageal Reflux - Surgical History Surgical History: Yes Surgery Procedure, Year, and Place: radical neck. Tonsilectomy, Both Adrenal glands removed -[id number] - Social History Alcohol Use: Daily Alcohol Amount: 2 beer daily Substance Use Type: None Smoking Status (MU): Former Smoker When Did the Patient Quit Smoking/Using Tobacco: 10 years ago - Immunization History Most Recent Influenza Vaccination: 07/2015 Most Recent Tetanus Shot: within past 10 years Most Recent Pneumonia Vaccination: never Review of Systems All Other Systems Reviewed And Are Negative: Yes Constitutional: Positive: Negative Skin: Positive: Negative Eyes: Positive: Negative ENT: Positive: Negative Respiratory: Positive: Negative Cardiovascular: Positive: Other - SEE HPI Gastrointestinal: Positive: Other - SEE HPI Genitourinary: Positive: Negative Motor: Positive: Negative Neurovascular: Positive: Negative Musculoskeletal: Positive: Negative Neurological: Positive: Negative Psychological: Positive: Negative Is Patient Immunocompromised?: No Physical Exam Triage Information Reviewed: Yes Appearance: Well-Appearing, No Pain Distress, Well-Nourished Vital Signs: Initial Vital Signs Temp 98.5 F 08/08/19 09:02 Pulse 62 08/08/19 09:02 Resp 15 08/08/19 09:02 BP 141/93 08/08/19 09:02 Pulse Ox 100 08/08/19 09:02 Vital Signs Reviewed: Yes Eye Exam: Normal Eyes: Positive: Conjunctiva Clear ENT: Positive: Pharynx normal Neck: Positive: Supple Respiratory: Positive: Lungs clear, Normal breath sounds, No respiratory distress Cardiovascular: Positive: RRR Abdomen Description: Positive: Other: - Tender to palpation epigastrium and left upper quadrant. Positive bowel sounds. Musculoskeletal: Positive: Strength Intact, ROM Intact Neurological: Positive: Alert Psychological: Positive: Age Appropriate Behavior Skin Exam: Normal Abd Pain Female Course/Dx - Course Course Of Treatment: Airplane Flight Attendant: Vincenzo Rosenthal F ([id number]) Product Coordinator: PB ( NUANCE) Report Date: 08/08/2019 09:28:00 Report Status: Final ====== Start of Report Content Patient Name: JORGE LUIS CROWDER Medical Record#: [id number] Ordering Physician: Rashid Paredes MD Acct.#: [id number] : 12/1949 Age: 69 Sex: M Location: [facility] Exam Date: 08/08/19927 ADM Status: REG ER Order Information: CHEST PA LAT 2 VWS Accession Number: [id number] CPT: 03781 INDICATION: Cough and congestion. COMPARISON: Comparison is made with a prior study from July 13, 2014. TECHNIQUE: Dual-energy PA and lateral views of the chest were obtained. FINDINGS: The heart is within normal limits in size. Mediastinal and hilar contours appear within normal limits. There is a linear density at the left lung base most consistent with subsegmental atelectasis or scarring. The lungs are otherwise clear. No pleural effusion is seen. IMPRESSION: NO EVIDENCE FOR ACTIVE CARDIOPULMONARY DISEASE. __ <Electronically signed by Vincenzo Rosenthal MD in OV> 08/08/19951 Dictated By: Vincenzo Rosenthal MD Dictated Date/Time: 08/08/19950 Transcribed Date/Time: 08/08/19950 Copy to: CC:Maria Luz Lewis MD; Rashid Paredes MD Imaging - [facility] [address] [address] ph [phone]) ph [phone]) ph [phone]) End of Report Content Airplane Flight Attendant: Michael Valentine Daniel, ([id number]) Product Coordinator: PB ( DOREENANCE) Report Date: 08/08/2019 09:28:00 Report Status: Final ====== Start of Report Content Patient Name: JORGE LUIS CROWDER Medical Record#: [id number] Ordering Physician: Rashid Paredes MD Acct.#: [id number] : 12/1949 Age: 69 Sex: M Location: [facility] Exam Date: 08/08/19927 ADM Status: REG ER Order Information: CT ABD/PEL W/O Accession Number: [id number] CPT: 84286 CLINICAL HISTORY: EPIGASTRIC/LUQ PAIN COMPARISON: Head CT dated November 14, 2014 TECHNIQUE: Multiple contiguous axial CT scans were obtained of the abdomen and pelvis, without intravenous contrast enhancement. Coronal and sagittal multiplanar reformations are submitted for review. Oral contrast was administered. FINDINGS: Evaluation is limited due to the lack of intravenous contrast. This limits evaluation of the solid organs and vasculature. LUNG BASES: The lung bases are clear. LIVER: The liver is normal in shape, size, contour, and attenuation. BILE DUCTS: There is no intrahepatic or extrahepatic biliary dilatation. GALLBLADDER: Multiple gallstones are noted. There is no pericholecystic inflammatory change. PANCREAS: The pancreas is normal, without mass or ductal dilatation. SPLEEN: Normal in size and appearance. UPPER GI TRACT: Evaluation of the gastrointestinal tract is limited by incomplete gastric distention. The upper GI tract is unremarkable. SMALL BOWEL AND MESENTERY: The small bowel is normal in contour, course, and caliber. There is no obstruction or dilatation. COLON: The colon is normal in contour, course, caliber. There is no pericolonic inflammatory change. ADRENALS: The right adrenal gland is normal. Surgical clips are noted in the expected location of the left adrenal. KIDNEYS: The kidneys are normal in shape, size, contour, and axis. There is no hydronephrosis or nephrolithiasis. BLADDER: There is circumferential bladder wall thickening PELVIC ORGANS: The prostate is diffusely enlarged. The seminal vesicles are symmetric. AORTA: There is calcific atherosclerotic disease of the abdominal aorta and its branches, without aneurysmal dilatation IVC: Unremarkable LYMPH NODES: There is no lymphadenopathy by size criteria. Surgical clips are noted in the retroperitoneum. ABDOMINAL WALL: There is no evidence for abdominal wall hernia. BONES AND SOFT TISSUES: Degenerative changes are noted. OTHER: None IMPRESSION: 1. CHOLELITHIASIS. 2. ENLARGED PROSTATE. 3. BLADDER WALL THICKENING 4. ATHEROSCLEROSIS <Electronically signed by Michael Valentine MD in OV> 08/08/19 1006 Dictated By: Michael Valentine MD Dictated Date/Time: 08/08/19 1003 Transcribed Date/ Time: 08/08/19 1003 Copy to: CC:Maria Luz Lewis MD; Rashid Paredes MD Imaging - [facility] - [place] [facility] Imaging - [facility] [address] [place] [id number] [address] [address] ph [phone]) ph [phone]) ph ([phone]) End of Report Content ========= I discussed the chest x-ray and the CT scan with the patient. At this time the pain is primarily in the epigastrium and left upper quadrant. It does get worse with eating. Does report having some black stools on and off for the last year. He's had an EGD In the last year. Here he has no fevers vital signs are stable pain is 4 out of 10 is not in extremis. CBC CMP and lipase are all pending. We discussed going to the emergency department if pain continues or gets worse. Patient has seen Dr. Esqueda in the past for GI is to follow-up with GI again. Anil increase the omeprazole from 20 mg a day to 40 mg a day. Follow-up with GI if he gets worse go the emergency department. - Differential Dx/Diagnosis Provider Diagnosis: Abdominal pain Discharge ED - Sign-Out/Discharge Documenting (check all that apply): Patient Departure All imaging exams completed and their final reports reviewed: Yes - Discharge Plan Condition: Stable Disposition: HOME Patient Education Materials: Epigastric Pain (ED), Acute Abdominal Pain (ED) Referrals: Maria Luz Lewis MD [Primary Care Provider] - Brannon Vallecillo MD [Medical Doctor] - Additional Instructions: FOLLOW UP WITH GASTROENTEROLOGY AND YOUR PRIMARY CARE DOCTOR. GO TO THE EMERGENCY DEPARTMENT IF NOT IMPROVED OR IF WORSE; PAIN, FEVER, BLOOD IN YOUR STOOL, YOU FEEL ILL OR ANY QUESTIONS OR CONCERNS. - Billing Disposition and Condition Condition: STABLE Disposition: Home
[2019-08-08] MEDS ORDERED: Al Hydrox/Mg Hydrox/Simet LIQ* 30 ML UDC PO ONE (09:57)
[2019-08-08 14:16] LABS: ABS Eosinophils 0.2 10^3/ul (0-0.6); ABS Lymphocytes 0.6 10^3/ul (1.0-4.8); ABS Monocytes 0.4 10^3/ul (0-0.8); ABS Neutrophils 6.3 10^3/ul (1.5-7.7); Eosinophil % 2.7 %; Hematocrit 42 % (42-52); Hemoglobin 14.5 g/dL (14.0-18.0); Lymphocyte % 7.7 %; Mean Corpuscular HGB Conc 34 g/dL (31-36); Mean Corpuscular Hemoglobin 33 pg (27-31); Mean Corpuscular Volume 97 fL (80-94); Mean Platelet Volume 8.2 fL (7.4-10.4); Platelet Count 264 10^3/uL (150-450); Red Blood Count 4.37 10^6 /uL (4.18-5.48); Red Cell Distribution Width 14 % (10-15); White Blood Count 7.6 10^3/uL (3.5-10.8)
[2019-08-08 14:49] LABS: Albumin 4.3 g/dL (3.2-5.2); Albumin/Globulin Ratio 1.8 (1-3); BUN/Creatinine Ratio 16.4 (8-20); Calcium 9.4 mg/dL (8.6-10.3); EGFR Non-African American 62.8 (>60); Globulin 2.4 g/dL (2-4); Potassium 4.5 mmol/L (3.5-5.0); Total Protein 6.7 g/dL (6.4-8.9)
== END 2019-08-08 10:39 | disposition home or self-care (01) ==
LOC: UCCORT 08:18
DX: R10.12 Left upper quadrant pain (principal); R10.13 Epigastric pain; E03.9 Hypothyroidism, unspecified; K21.9 Gastro-esophageal reflux disease without esophagitis; Z87.891 Personal history of nicotine dependence
CPT/HCPCS: 36415; 71046; 74176; 80053; 83690; 85025; 99211; A9270-GY; G0463

== ENCOUNTER 2024-07-05 05:43 | Inpatient (IN) ==
[~2024-07-05 05:43] MED LIST: Metoclopramide 5 MG/ML VIAL (10 mg) IV PRN; NS 0.45% 1000 ml BAG 1,000 ML IV SCH; Naloxone 0.4 mg VIAL 0.4 mg/ml 1 ml VIAL IV PRN; Ondansetron 4 mg VIAL 2 MG/ML 2 ml VIAL IV PRN
[2024-07-05] MEDS ORDERED: ceFAZolin 2 GM in NS PREMIX 2 GM/100 ML BAG IVPB ONE (06:09)
[2024-07-05 06:34] LABS: Rapid COVID-19 Molecular Undetected (Undetected)
[2024-07-05] MEDS ORDERED: ROPIVACAINE 5 MG/ML 30 ML BTL (0.5%) ONE (06:40)
[2024-07-05] MEDS ORDERED: Dexamethasone IV 4 MG/ML VIAL 1 ml VIAL ONE (07:07)
[2024-07-05] MEDS ORDERED: Rocuronium 50 mg VIAL 10 mg/ml 5 ml VIAL (50 mg) ONE (07:07)
[2024-07-05] MEDS ORDERED: Lidocaine 2% PF 5 ML VIAL ONE (07:07)
[2024-07-05] MEDS ORDERED: Ondansetron 4 mg VIAL 2 MG/ML 2 ml VIAL ONE (07:07)
[2024-07-05] MEDS ORDERED: fentaNYL 250 mcg/5 ml 50 MCG/ML 5 ml VIAL (250 MCG) ONE (07:07)
[2024-07-05] MEDS ORDERED: Propofol 10 MG/ML 20 ML BTL ONE (07:07)
[2024-07-05] MEDS ORDERED: Sevoflurane BOTTLE ONE ×2 (07:10→07:11)
[2024-07-05] MEDS ORDERED: KETAMINE HCL 10 MG/ML 20 ml VIAL (200 MG) ONE (08:16)
[2024-07-05] MEDS ORDERED: Glycopyrrolate IV 0.2 MG/ML 1 ML VIAL ONE (08:19)
[2024-07-05] MEDS ORDERED: Magnesium Hydroxide LIQ 30 ML UDC PO PRN (11:14)
[2024-07-05] MEDS ORDERED: Lactulose 30 ml UDC PO PRN (11:14)
[2024-07-05] MEDS ORDERED: Calcium Carb (TUMS) 500 mg CHEW TAB PO PRN (11:14)
[2024-07-05] MEDS ORDERED: Ondansetron 4 mg VIAL 2 MG/ML 2 ml VIAL IV PRN (11:14)
[2024-07-05] MEDS ORDERED: Morphine 2 MG/ML SYRINGE IV PRN (11:14)
[2024-07-05] MEDS ORDERED: Ondansetron ODT 4 mg TAB 4 MG TAB PO PRN (11:14)
[2024-07-05] MEDS ORDERED: fentaNYL 100 mcg/2 ml 50 MCG/ML VIAL ONE (11:22)
[2024-07-05] MEDS: fentaNYL 100 mcg/2 ml 50 MCG/ML VIAL IV PRN (11:26)
[2024-07-05] MEDS: Lactated Ringers 1000 ml BAG 1,000 ML IV SCH ×2 (13:02→13:32)
[2024-07-05] MEDS: Acetaminophen IV 1 GM/100ML 1,000 MG/100 ML BAG IV ONE (13:31)
[2024-07-05] MEDS: Buffered Lidocaine 1% SYRIN 1 ml INTRADERM ONE (14:12)
[2024-07-05] MEDS: Scopolamine 1 mg/72hr PATCH TRANSDERM ONE (14:13)
[2024-07-05] MEDS: ceFAZolin 2 GM in NS PREMIX 2 GM/100 ML BAG IVPB SCH (15:28)
[2024-07-05] MEDS: Magnesium Hydroxide LIQ 30 ML UDC PO SCH (21:24)
[2024-07-06 06:40] LABS: Hematocrit 31.9 % (38-53); Hemoglobin 11.1 g/dL (13.2-16.3); Mean Platelet Volume 7.4 fL (7.5-11.2); Platelet Count 240 10^3/uL (150-450)
[2024-07-06 07:04] LABS: Calcium 8.4 mg/dL (8.6-10.3)
[2024-07-06] MEDS: Vitamin THERAPEUTIC TAB PO SCH (08:25)
[2024-07-06 10:22] VITALS: BP 144/92
[2024-07-07] MEDS ORDERED: Omeprazole 20 mg CAP (NF) PO SCH (09:00)
== END 2024-07-06 12:20 | disposition home or self-care (01) | DRG 462 ==
LOC: AA 05:43 → SSU 11:14
PROVIDERS: ADMIT Orthopaedic Surgery Adult Reconstructive Orthopaedic Surgery; ATTEND Orthopaedic Surgery Adult Reconstructive Orthopaedic Surgery